=== PATIENT | female | born 1990 | race Caucasian/White ===

== ENCOUNTER → 2017-05-01 | Outpatient (CLI) | payer BC ==
[~2017-05-01] MED LIST: BCPILLS PO
--- NOTE | 2017-05-01 09:38 | DIAGNOSTIC IMAGING REPORT ---
SOFT TISS HEAD/NECK-THYROID CLINICAL HISTORY: 26 years-old Female with THYROID NODULE. Follow-up study for thyroid nodules COMPARISON: Thyroid ultrasound 05/05/2016 TECHNIQUE: Multiple real time sonographic images of the thyroid were obtained accessing root scale appearance and color doppler flow. FINDINGS: MEASUREMENTS: Right lobe: 4.8 x 1.1 x 1.4 cm Left lobe: 4.1 x 1.0 x 1.2 cm Isthmus: 0.2 cm PARENCHYMA: The thyroid parenchymal echotexture is generally homogeneous. NODULES: Probable colloid cyst of the right thyroid are seen measuring up to 0.2 cm. Wider than tall circumscribed homogeneous hypoechoic solid nodule of the mid pole left thyroid is seen, 1.4 x 0.7 x 0.9 cm, previously 9 x 7 x 5 mm. Multiple smaller cysts and nodules in left thyroid measuring up to 0.3 cm also seen. IMPRESSION: 1. Hypoechoic solid nodule of the mid pole left thyroid measuring up to 1.4 cm has increased in size from comparison study 05/05/2016 where it previously measured up to 9 mm. This does not meet criteria for biopsy at this time. Additional follow-up recommended. 2. Probable subcentimeter colloid cysts of the right thyroid. The above report was generated using voice recognition software. It may contain grammatical, syntax or spelling errors. Electronically signed by: Roberto Givens M.D. 05/01/2017 9:37 AM Dictated Date/Time: 05/01/2017 9:33 AM
== END | disposition home or self-care (01) ==
LOC: C.ULTRBC 09:00
PROVIDERS: ATTEND Nurse Practitioner Family
DX: E04.1 Nontoxic single thyroid nodule (principal)

== ENCOUNTER → 2017-05-02 | Outpatient (CLI) | payer OTHER | END | disposition home or self-care (01) | LOC: C.LAB 01:01 | DX: Z04.8 Encounter for examination and observation for other specified reasons (principal) ==

== ENCOUNTER → 2017-05-19 | Outpatient (CLI) | payer BC ==
--- NOTE | 2017-05-19 13:50 | Discharge Instructions ---
Discharge Instructions Procedure Procedure Date: May 19, 2017. Reason for visit: Nodule 1.4 Cm Increased In Size From Prev Us. Discharge Discharge Date: May 19, 2017. Discharge Diagnosis: Left lobe thyroid nodule Instructions Activity Recommendations: No limitations Return to School/Work: no limitations Recommended Home Diet: Resume Previous Diet Provider Instructions: Ultrasound guided fine-needle aspiration of a left thyroid nodule is performed with 3 passes utilizing 25-gauge needles. The procedure was well tolerated adn without immediate complication ACTIVITY RECOMMENDATIONS: * Rest today. * Resume regular activity in one day. MEDICATIONS: * May take Tylenol or Ibuprofen as needed for pain. DIET: * Resume previous diet. SPECIAL CARE INSTRUCTIONS: Call your doctor if: * Temperature above 101 degrees F. * Pain not relieved by pain medicine ordered. * Increased drainage or redness from incision. * Notify your doctor with any questions or concerns. Call your doctor or go to the nearest Emergency Department if you experience: * Increased chest pain or shortness of breath. FOLLOW UP VISIT: Follow-up with Referring Physician as scheduled. Allergies Coded Allergies: No Known Allergies (Unverified , 04/30/16) Erwin Kumar Recommendations: Call your doctor if: * Temperature above 101 degrees * Pain not relieved by pain medicine ordered * There is increased drainage or redness from any incision * You have any unanswered questions or concerns. Your Doctors Instructions noted above were prepared by provider Uli Middleton. Patient Signature Section: Patient Instructions Signature Page Sunita Sorto Patient (or Guardian) Signature/Date: I have read and understand the instructions given to me by my caregivers. Caregiver/RN/Doctor Signature/Date: The above-named patient and/or guardian has received patient instructions on this date. + Original Patient Signature Page (only) stays with chart. Please make copy for patient.
--- NOTE | 2017-05-19 14:21 | DIAGNOSTIC IMAGING REPORT ---
ULTRASOUND-GUIDED FINE-NEEDLE ASPIRATION THYROID CLINICAL HISTORY: Left lobe thyroid nodule. Family history of thyroid cancer. COMPARISON STUDY: Thyroid ultrasound dated 05/01/2017. PROCEDURE: The risks, benefits, and alternatives to the procedure were discussed with the patient. Written informed consent was obtained. The patient was placed supine in ultrasound, and the 1.4 x 0.7 x 0.9 cm hypoechoic nodule in the left lobe of the thyroid was localized by ultrasound and selected for fine needle aspiration. The left neck was prepped and draped in the usual sterile fashion. The nodule was aspirated under ultrasound guidance with 3 passes utilizing 25-gauge needles. Specimens were reviewed by the pathologist in real-time and deemed adequate for diagnosis. The patient tolerated the procedure well and left the department in satisfactory condition. IMPRESSION: Completed fine-needle aspiration of a left lobe thyroid nodule as above. Electronically signed by: Uli Middleton M.D. 05/19/2017 2:19 PM Dictated Date/Time: 05/19/2017 2:18 PM
== END | disposition home or self-care (01) ==
LOC: C.ULTR 12:49
PROVIDERS: ATTEND Nurse Practitioner Family
DX: E04.1 Nontoxic single thyroid nodule (principal)